=== PATIENT | male | born 1980 | race Two or more races ===

== ENCOUNTER 2018-10-18 14:20 | Outpatient (CLI) | payer OTHER | END 2018-10-18 16:20 | disposition home or self-care (01) | LOC: SONOGRAMA 14:20 | DX: M25.572 Pain in left ankle and joints of left foot (principal) ==

== ENCOUNTER 2018-11-27 14:04 | Outpatient (CLI) | payer OTHER | END 2018-11-27 14:11 | disposition home or self-care (01) | LOC: SONOGRAMA 14:04 | DX: M25.572 Pain in left ankle and joints of left foot (principal) ==

== ENCOUNTER 2024-07-27 13:48 | Outpatient (CLI) | payer OTHER | END 2024-07-27 13:56 | disposition home or self-care (01) | LOC: SONOGRAMA 13:48 | PROVIDERS: ATTEND Physical Medicine & Rehabilitation | DX: M76.62 Achilles tendinitis, left leg (principal) ==

== ENCOUNTER → 2024-12-30 | Emergency (ER) | payer OTHER ==
[~2024-12-30] VITALS: Ht 182.9 cm; Wt 129.3 kg
[~2024-12-30] MED LIST: AMOX-CLAV 875-1 EACH PO; CEFTRIAXONE SODIUM 1,000 MG VIAL IM ONE; CEFTRIAXONE SODIUM 1,000 MG VIAL ONE; DIPHTH,PERTUSS(ACELL),TET VAC 0.5 ML SYRINGE IM ONE; KETO10TA2 PO; KETOROLAC TROMETHAMINE 30 MG VIAL IM ONE; KETOROLAC TROMETHAMINE 30 MG VIAL ONE; LIDOCAINE HCL/MPF 1% 5ML VIAL IJ ONE; PEPCID AC20 MG PO; TETANUS & DIPHTHERIA TOX,ADULT 0.5 ML VIAL IM ONE
== END | disposition home or self-care (01) ==
LOC: ER 14:41
DX: S61.210A Laceration without foreign body of right index finger without damage to nail, initial encounter (principal); W45.8XXA Other foreign body or object entering through skin, initial encounter; Y93.89 Activity, other specified; Y92.89 Other specified places as the place of occurrence of the external cause; Y99.9 Unspecified external cause status